=== PATIENT | female | born 1995 | race Caucasian/White ===

== ENCOUNTER 2021-11-17 02:25 | Emergency (ER) | payer MEDICAID ==
[2021-11-17 02:47] VITALS: BP 154/88; PULSE 117
[2021-11-17] MEDS ORDERED: Lidocaine 1% with EPINEPHrine 1:100,000 10 ML MDV INJECT ONE (03:29)
[2021-11-17] MEDS ORDERED: Lidocaine 1% with EPINEPHrine 1:100,000 20 ML MDV INJECT ONE (03:45)
== END 2021-11-17 05:12 | disposition home or self-care (01) ==
LOC: JD.ED 02:25
DX: S01.511A Laceration without foreign body of lip, initial encounter (principal); Z88.1 Allergy status to other antibiotic agents; Z91.048 Other nonmedicinal substance allergy status
CPT/HCPCS: 12013; 36415; 70450; 70450-26; 70486; 70486-26; 80053; 85025; 93005; 93010; 99283; 99284-25